=== PATIENT | female | born 1950 | race African-American/Black ===

== ENCOUNTER 2018-10-07 18:05 | Emergency (ER) | payer MEDICARE ==
[2018-10-07] MEDS ORDERED: Acetaminophen 500 MG TAB ONE (18:58)
--- NOTE | 2018-10-07 21:10 | ULT ---
LEFT LOWER EXTREMITY VENOUS DOPPLER ULTRASOUND: 10/07/2018 HISTORY: Left lower extremity pain, swelling, and edema. Assess for DVT. COMPARISON: None. TECHNIQUE: Multiplanar nolan-scale sonographic imaging of the venous structures of the left lower extremity obtai vivian with color-flow and spectral analysis. FINDINGS: Left common femoral vein, femoral vein, popliteal vein, greater saphenous vein, profunda femoral vein , and posterior tibial vein are patent. Normal blood flow, augmentation, and compression within the deep venous system on the left. No evidence for DVT on the left. IMPRESSION: No evidence for deep venous thrombosis of the left lower extremity. POS: [facility]
== END 2018-10-07 20:41 | disposition home or self-care (01) ==
LOC: ERS 18:05
DX: M79.662 Pain in left lower leg (principal); E11.9 Type 2 diabetes mellitus without complications; I10 Essential (primary) hypertension; F41.9 Anxiety disorder, unspecified; F03.90 Unspecified dementia, unspecified severity, without behavioral disturbance, psychotic disturbance, mood disturbance, and anxiety